=== PATIENT | female | born 1995 | race Caucasian/White ===

== ENCOUNTER 2019-01-15 12:09 | Emergency (ER) | payer OTHER, MEDICAID ==
[~2019-01-15] VITALS: Ht 157.5 cm; Wt 68.0 kg
[2019-01-15] MEDS ORDERED: DIPHENHIST50 MG PO (12:40)
[2019-01-15] MEDS ORDERED: PEPCID20 MG PO (12:40)
[2019-01-15] MEDS ORDERED: PREDNISONE 20 M20 MG PO (12:40)
[2019-01-15] MEDS ORDERED: ONDANSETRON HCL4 M2 PO (12:40)
[2019-01-15] MEDS ORDERED: EPIPEN0.3 MG/0.1 IM (12:42)
[2019-01-15 14:11] VITALS: BP 104/46
== END 2019-01-15 14:12 | disposition home or self-care (01) ==
LOC: M.ERS 12:09
DX: T78.40XA Allergy, unspecified, initial encounter (principal); F17.210 Nicotine dependence, cigarettes, uncomplicated; Z90.5 Acquired absence of kidney; X58.XXXA Exposure to other specified factors, initial encounter